=== PATIENT | female | born 1980 | race Caucasian/White ===

== ENCOUNTER 2019-02-25 08:18 | Day surgery (SDC) | payer OTHER ==
[~2019-02-25] VITALS: Ht 172.7 cm; Wt 90.9 kg
[~2019-02-25 08:18] MED LIST: ASCO500C15 PO; IBUP1TAB12; ZINC10LO5
[2019-02-25 08:27] VITALS: BP 119/77
[2019-02-25] MEDS ORDERED: MULT-955 PO (08:29)
[2019-02-25] MEDS ORDERED: fentaNYL/PF 50MCG/1 ML 2ML syringe ONE (09:05)
[2019-02-25] MEDS ORDERED: MIDAZolam 5mg/5ml vial ONE ×2 (09:05→09:06)
[2019-02-25 10:30] VITALS: BP 109/72
[2019-02-25 10:40] VITALS: BP 99/65
[2019-02-25 10:50] VITALS: BP 94/62
[2019-02-25 11:00] VITALS: BP 118/75
== END 2019-02-25 12:00 | disposition home or self-care (01) ==
LOC: GI LAB 08:18
PROVIDERS: ATTEND Internal Medicine Gastroenterology
DX: Z12.11 Encounter for screening for malignant neoplasm of colon (principal); Z86.010 Personal history of colon polyps; K64.8 Other hemorrhoids; K63.89 Other specified diseases of intestine; K56.2 Volvulus; Z79.899 Other long term (current) drug therapy
CPT/HCPCS: 45378; 99152; 99153; J2250; J3010; J7040; A4620

== ENCOUNTER 2019-04-28 10:15 | Outpatient (CLI) | payer OTHER ==
[~2019-04-28 10:15] MED LIST changes: -IBUP1TAB12; +MULT-955 PO
[2019-04-28 10:40] LABS: BASOPHILS # (AUTO) 0.1 X10'3 (0-0.2); BASOPHILS % (AUTO) 0.7 % (0-1); EOSINOPHILS # (AUTO) 0.1 X10'3 (0-0.9); EOSINOPHILS % (AUTO) 0.8 % (0-6); HEMATOCRIT 41.4 % (35.0-45.0); HEMOGLOBIN 13.8 g/dl (12.0-16.0); LYMPHOCYTES # (AUTO) 1.8 X10'3 (1.1-4.8); LYMPHOCYTES % (AUTO) 25.3 % (21-51); MEAN CORPUSCULAR HEMOGLOBIN 27.9 PG (27.0-31.0); MEAN CORPUSCULAR HGB CONC 33.5 g/dL (33.0-36.5); MEAN CORPUSCULAR VOLUME 83.3 FL (78-98); MEAN PLATELET VOLUME 6.8 FL (7.4-10.4); MONOCYTES # (AUTO) 0.5 X10'3 (0-0.9); MONOCYTES % (AUTO) 7.1 % (2-12); NEUTROPHILS # (AUTO) 4.6 X10'3 (1.8-7.7); NEUTROPHILS % (AUTO) 66.1 % (42-75); PLATELET COUNT 343 X10'3 (140-440); RED BLOOD COUNT 4.96 X10'6 (4.20-5.60); RED CELL DISTRIBUTION WIDTH 15.3 % (11.5-14.5)
[2019-04-28 11:06] LABS: ALANINE AMINOTRANSFERASE 26 U/L (12-78); ALBUMIN 3.8 G/DL (3.4-5.0); ALKALINE PHOSPHATASE 66 IU/L (46-116); ANION GAP 4 (8-16); ASPARTATE AMINO TRANSFERASE 18 U/L (10-37); BILIRUBIN,TOTAL 0.6 MG/DL (0.1-1.0); BLOOD UREA NITROGEN 10 MG/DL (7-18); BUN/CREATININE RATIO 14.5 (6.6-38.0); CALCIUM 8.8 MG/DL (8.5-10.1); CHLORIDE 106 MMOL/L (99-107); CHOL/HDL RATIO 2.7 (0.00-4.99); CHOLESTEROL 152 MG/DL (0-200); CREATININE 0.69 MG/DL (0.40-0.90); GLUCOSE 98 MG/DL (70-104); HDL CHOLESTEROL 56 MG/DL (35-60); LDL CHOLESTEROL 90 MG/DL (50-100); POTASSIUM 4.1 MMOL/L (3.5-5.1); SODIUM 141 MMOL/L (135-145); TOTAL CARBON DIOXIDE 30.7 MMOL/L (24-32); TOTAL PROTEIN 7.5 G/DL (6.4-8.2); TRIGLYCERIDES 67 MG/DL (20-135); eGFR > 90 ML/MIN
[2019-04-28 11:21] LABS: CLARITY,URINE CLEAR (Clear); COLOR,URINE YELLOW (Yellow); GLUCOSE, URINE NEGATIVE (Neg); KETONES,URINE NEGATIVE (Neg); LEUKOCYTE ESTERASE ,URINE NEGATIVE (Neg); NITRITES, URINE NEGATIVE (Neg); OCCULT BLOOD,URINE NEGATIVE (Neg); PROTEIN,URINE NEGATIVE (Neg); UROBILINOGEN,URINE 0.2 E.U/dL (0.2-1.0)
[2019-04-28 11:26] LABS: UA COLLECTION TYPE CLN CATCH MIDSTREAM
== END 2019-04-28 23:59 | disposition home or self-care (01) ==
LOC: LAB 10:15
PROVIDERS: ATTEND Family Medicine
DX: Z76.89 Persons encountering health services in other specified circumstances (principal); J45.909 Unspecified asthma, uncomplicated
CPT/HCPCS: 36415; 80053; 80061; 81003; 84439; 84443; 85025

== ENCOUNTER 2023-08-12 08:56 | Outpatient (CLI) | payer OTHER ==
[~2023-08-12 08:56] MED LIST changes: -ASCO500C15 PO; +ASCO500C18 PO
[2023-08-12 09:19] LABS: BASOPHILS % (AUTO) 0.5 % (0-1); EOSINOPHILS # (AUTO) 0.1 X10'3 (0-0.9); EOSINOPHILS % (AUTO) 0.9 % (0-6); HEMATOCRIT 37.6 % (35.0-45.0); HEMOGLOBIN 12.4 g/dl (12.0-16.0); LYMPHOCYTES # (AUTO) 2.2 X10'3 (1.1-4.8); LYMPHOCYTES % (AUTO) 26.6 % (21-51); MEAN CORPUSCULAR HEMOGLOBIN 25.7 PG (27.0-31.0); MEAN CORPUSCULAR HGB CONC 32.9 g/dL (33.0-36.5); MEAN PLATELET VOLUME 6.7 FL (7.4-10.4); MONOCYTES # (AUTO) 0.7 X10'3 (0-0.9); NEUTROPHILS # (AUTO) 5.1 X10'3 (1.8-7.7); PLATELET COUNT 425 X10'3 (140-440); RED BLOOD COUNT 4.81 X10'6 (4.20-5.60); RED CELL DISTRIBUTION WIDTH 15.2 % (11.5-14.5); WHITE BLOOD COUNT 8.1 X10'3 (4.5-11.0)
[2023-08-12 09:49] LABS: ALANINE AMINOTRANSFERASE 18 U/L (12-78); ALBUMIN 3.3 G/DL (3.4-5.0); ALBUMIN/GLOBULIN RATIO 0.8 (1.1-1.5); ALKALINE PHOSPHATASE 66 IU/L (46-116); ANION GAP 6 (8-16); ASPARTATE AMINO TRANSFERASE 10 U/L (10-37); BILIRUBIN,TOTAL 0.3 MG/DL (0.1-1.0); BLOOD UREA NITROGEN 16 MG/DL (7-18); BUN/CREATININE RATIO 22.9 (10.0-20.0); CHLORIDE 104 MMOL/L (99-107); CHOLESTEROL 151 MG/DL (0-200); GLUCOSE 97 MG/DL (70-104); HDL CHOLESTEROL 50 MG/DL (35-60); LDL CHOLESTEROL 94 MG/DL (50-100); POTASSIUM 4.5 MMOL/L (3.5-5.1); SODIUM 139 MMOL/L (135-145); THYROID STIMULATING HORMONE 3.12 ulU/ml (0.34-4.50); TOTAL PROTEIN 7.6 G/DL (6.4-8.2); TRIGLYCERIDES 45 MG/DL (20-135); eGFR > 90 ML/MIN
[2023-08-12 10:11] LABS: BILIRUBIN,URINE NEGATIVE (Neg); CLARITY,URINE CLEAR (Clear); COLOR,URINE YELLOW (Yellow); GLUCOSE, URINE NEGATIVE (Neg); KETONES,URINE NEGATIVE (Neg); LEUKOCYTE ESTERASE ,URINE NEGATIVE (Neg); NITRITES, URINE NEGATIVE (Neg); OCCULT BLOOD,URINE NEGATIVE (Neg); PH,URINE 5.5 (4.8-8.0); PROTEIN,URINE NEGATIVE (Neg); UROBILINOGEN,URINE 0.2 E.U/dL (0.2-1.0)
[2023-08-12 10:16] LABS: UA COLLECTION TYPE NON-SPECIFIED
== END 2023-08-12 23:59 | disposition home or self-care (01) ==
LOC: LAB 08:56
PROVIDERS: ATTEND Physician Assistant
DX: G47.30 Sleep apnea, unspecified (principal); R06.02 Shortness of breath; J45.909 Unspecified asthma, uncomplicated; K52.9 Noninfective gastroenteritis and colitis, unspecified; Z76.89 Persons encountering health services in other specified circumstances
CPT/HCPCS: 36415; 80053; 80061; 81003; 84436; 84443; 85025

== ENCOUNTER 2025-04-14 13:54 | Outpatient (CLI) | payer BC ==
[2025-04-17 17:12] LABS: MUMPS ANTIBODIES, IGG 50.0 AU/mL (Immune >10.9); RUBEOLA ANTIBODIES, IGG >300.0 AU/mL (Immune >16.4); VARICELLA-ZOSTER VIRUS AB, IGG Reactive (Non Reactive)
[2025-04-18 05:12] LABS: HEP B SURF AB QUANTITATIVE 115.0 mIU/mL (Immunity>10)
== END 2025-04-14 23:59 | disposition home or self-care (01) ==
LOC: RAD 13:54
PROVIDERS: ATTEND Student in an Organized Health Care Education/Training Program
DX: Z02.1 Encounter for pre-employment examination (principal)
CPT/HCPCS: 36415; 86480; 86706; 86735; 86762; 86765